=== PATIENT | male | born 1990 | race African-American/Black ===

== ENCOUNTER 2016-12-23 07:20 | Emergency (ER) | payer SELFPAY ==
[~2016-12-23] VITALS: Ht 185.4 cm; Wt 68.2 kg
[2016-12-23 07:23] VITALS: BP 119/71; PULSE 101; TEMP 98.3
[2016-12-23] MEDS ORDERED: NORCOELIX PO (08:53)
== END 2016-12-23 09:41 | disposition home or self-care (01) ==
LOC: COL.ER 07:20 → EDSEX 07:28 → COL.ER 07:28
DX: S02.652A Fracture of angle of left mandible, initial encounter for closed fracture (principal); G93.9 Disorder of brain, unspecified; S00.83XA Contusion of other part of head, initial encounter; Y09 Assault by unspecified means
CPT/HCPCS: J1170; J2405

== ENCOUNTER → 2017-01-10 | Outpatient (CLI) | payer SELFPAY ==
[~2017-01-10] MED LIST: NORCOELIX PO
== END ==
LOC: COL.RAD 01-08 08:15 → EDSEX 15:02
DX: G93.89 Other specified disorders of brain (principal)
CPT/HCPCS: A9585